=== PATIENT | male | born 1960 | race Asian ===

== ENCOUNTER 2019-02-26 19:30 | Outpatient (CLI) | payer BC | END 2019-02-26 19:31 | disposition home or self-care (01) | LOC: SLEEPLAB 19:30 | PROVIDERS: ATTEND Family Medicine | DX: G47.33 Obstructive sleep apnea (adult) (pediatric) (principal); R53.83 Other fatigue; R40.0 Somnolence; G47.61 Periodic limb movement disorder | CPT/HCPCS: 95811 ==